=== PATIENT | female | born 1980 | race African-American/Black ===

== ENCOUNTER 2018-02-24 14:31 | Inpatient (IN) ==
[2018-02-24] MEDS ORDERED: SODIUM CHLORIDE 0.9% 1,000 ML IV STA (15:04)
[2018-02-24] MEDS ORDERED: ONDANSETRON 4 MG/2 ML VIAL IV STA (15:05)
[2018-02-24 15:53] LABS: Basophils % 0.1 % (0.0-0.8); Eosinophils # 0.1 10*3/uL (0.0-0.87); Eosinophils % 0.8 % (0.00-10.9); Hematocrit 35.7 VOL% (35.7-47.0); Immature Granulocytes % 0.4 %; Immature Granulocytes Absolute 0.03 #; Lymphocytes # 2.1 10*3/uL (1.4-4.0); Lymphocytes % 25.2 % (21.3-54.2); Mean Corpuscular HGB Conc 33.6 GM/DL (32-36); Mean Corpuscular Hemoglobin 34 PG (27-34); Mean Corpuscular Volume 100.3 FL (87-102); Mean Platelet Volume 9.3 FL (9.6-12.0); Monocytes # 0.6 10*3/uL (0.11-0.8); Monocytes % 7.7 % (1.7-12.7); Neutrophils # 5.4 10*3/uL (1.4-7.4); Neutrophils % 65.8 % (38.7-73.9); Platelet Count 281 T/CUMM (130-400); Red Blood Count 3.56 MC/CUMM (3.8-5.5); Red Cell Distribution Width 14.7 % (9.3-17.3); White Blood Count 8.3 T/CUMM (4-12)
[2018-02-24 16:09] LABS: Albumin 3.9 G/DL (3.4-5.0); Bilirubin,Total 0.8 MG/DL (0.2-1.0); Osmolality,Calculated 273.7 MOS/KG (273-304); Total Protein 7.6 G/DL (6.4-8.3)
[2018-02-24 16:35] LABS: Apearance,Urine CLOUDY (Clear); Bacteria,Urine Occasional /HPF (Few); Bilirubin,Urine Negative (Negative); Blood, Urine Negative (Negative); Glucose,Urine (UA) Negative (Negative); Ketones,Urine 80 mg/dL (Negative); Mucus,Urine Occasional /LPF (Occasional); Nitrite,Urine Positive (Negative); Protein,Urine Negative; RBC,Urine 4 /HPF (0-4); Squamous Epithelial Cell,Urine Occasional /HPF (0-10); Urine Color Yellow (Yellow); Urine Specific Gravity 1.014 (1.001-1.035); Urine Urobilinogen < 2.0 EU/DL (0.2-1.0); WBC,Urine 17 /HPF (0-6)
[2018-02-24] MEDS ORDERED: PROMETHAZINE 25 MG/1 ML VIAL IM STA (16:39)
[2018-02-24] MEDS ORDERED: MORPHINE 4 MG/1 ML VIAL IV STA ×2 (16:40→18:42)
[2018-02-24] MEDS ORDERED: MORPHINE 4 MG/1 ML VIAL IV PRN (17:07)
[2018-02-24] MEDS ORDERED: ONDANSETRON 4 MG/2 ML VIAL IV PRN (17:07)
[2018-02-24 17:10] LABS: Barbiturates Screen,Urine Negative (Negative); Benzodiazepines Screen,Urine Negative (Negative); Cannabinoid Screen,Urine Positive (Negative); Opiate Screen,Urine Negative (Negative); Phencyclidine Screen,Urine Negative (Negative)
[2018-02-24] MEDS ORDERED: SODIUM CHLORIDE 0.9% 1,000 ML IV ONE (17:10)
[2018-02-24 17:12] LABS: Risk Ratio 1.55; VLDL CHOLESTEROL 16.4 MG/DL
[2018-02-24] MEDS ORDERED: MAGNESIUM SULF RIDER 2 GM in PREMIX 1 EACH IV PRN (17:19)
[2018-02-24] MEDS ORDERED: MAGNESIUM SULF RIDER 4 GM in PREMIX 1 EACH IV PRN (17:19)
[2018-02-24] MEDS ORDERED: MULTIVITAMIN IV SCH (17:30)
[2018-02-24] MEDS ORDERED: SODIUM CHLORIDE IV SCH (17:30)
[2018-02-24] MEDS ORDERED: hydrALAZINE 20 MG/1 ML VIAL IV PRN (17:37)
[2018-02-24] MEDS ORDERED: hydrALAZINE 20 MG/1 ML VIAL ONE (17:57)
[2018-02-24] MEDS: ENOXAPARIN 40 MG/0.4 ML SYRINGE SUBCUT SCH (19:43)
[2018-02-24] MEDS: LEVOFLOXACIN INJ 500 MG in PREMIX 1 EACH IV SCH (19:44)
[2018-02-24] MEDS: SODIUM CHLOR 0.9% KCL 20 MEQ 20 MEQ/1,000 ML BAG IV SCH (19:44)
[2018-02-24] MEDS: LORazepam 2 MG/1 ML VIAL IV SCH ×2 (19:45→23:43)
[2018-02-24] MEDS ORDERED: cloNIDine 0.2 MG/24 HR PATCH TRANSDERM SCH (21:00)
[2018-02-24] MEDS: MORPHINE 4 MG/1 ML VIAL IV PRN (21:32)
[2018-02-25 05:22] LABS: Basophils % 0.1 % (0.0-0.8); Eosinophils % 0.1 % (0.00-10.9); Hematocrit 34.3 VOL% (35.7-47.0); Immature Granulocytes % 0.3 %; Immature Granulocytes Absolute 0.02 #; Lymphocytes # 1.7 10*3/uL (1.4-4.0); Lymphocytes % 23.8 % (21.3-54.2); Mean Corpuscular HGB Conc 32.1 GM/DL (32-36); Mean Corpuscular Hemoglobin 33 PG (27-34); Mean Corpuscular Volume 102.7 FL (87-102); Mean Platelet Volume 9.2 FL (9.6-12.0); Monocytes # 0.5 10*3/uL (0.11-0.8); Monocytes % 6.9 % (1.7-12.7); Neutrophils # 4.9 10*3/uL (1.4-7.4); Neutrophils % 68.8 % (38.7-73.9); Platelet Count 255 T/CUMM (130-400); Red Blood Count 3.34 MC/CUMM (3.8-5.5); Red Cell Distribution Width 15.2 % (9.3-17.3); White Blood Count 7.1 T/CUMM (4-12)
[2018-02-25] MEDS: SODIUM CHLOR 0.9% KCL 20 MEQ 20 MEQ/1,000 ML BAG IV SCH ×2 (05:31→16:39)
[2018-02-25 05:45] LABS: Albumin 3.4 G/DL (3.4-5.0); Bilirubin,Total 0.5 MG/DL (0.2-1.0); Calcium 7.6 MG/DL (8.5-10.1); Osmolality,Calculated 267.8 MOS/KG (273-304); Potassium 3.9 MMOL/L (3.5-5.1); Total Protein 6.6 G/DL (6.4-8.3)
[2018-02-25] MEDS: LORazepam 2 MG/1 ML VIAL IV SCH ×3 (05:52→21:20)
[2018-02-25] MEDS ORDERED: THIAMINE 200 MG/2 ML VIAL IV SCH (09:00)
[2018-02-25] MEDS ORDERED: PANTOPRAZOLE 40 MG VIAL IV SCH (09:00)
[2018-02-25] MEDS: ENOXAPARIN 40 MG/0.4 ML SYRINGE SUBCUT SCH (16:39)
[2018-02-25] MEDS: MORPHINE 4 MG/1 ML VIAL IV PRN (18:50)
[2018-02-25] MEDS: LEVOFLOXACIN INJ 500 MG in PREMIX 1 EACH IV SCH (21:20)
[2018-02-26] MEDS: SODIUM CHLOR 0.9% KCL 20 MEQ 20 MEQ/1,000 ML BAG IV SCH (01:27)
[2018-02-26] MEDS: LORazepam 2 MG/1 ML VIAL IV SCH (02:31)
[2018-02-26 04:35] LABS: Basophils % 0.2 % (0.0-0.8); Eosinophils % 0.7 % (0.00-10.9); Hematocrit 32.7 VOL% (35.7-47.0); Hemoglobin 10.6 GM/DL (12.0-16.0); Immature Granulocytes % 0.3 %; Immature Granulocytes Absolute 0.02 #; Lymphocytes # 1.3 10*3/uL (1.4-4.0); Lymphocytes % 21.2 % (21.3-54.2); Mean Corpuscular HGB Conc 32.4 GM/DL (32-36); Mean Corpuscular Hemoglobin 34 PG (27-34); Mean Corpuscular Volume 103.5 FL (87-102); Mean Platelet Volume 9.5 FL (9.6-12.0); Monocytes # 0.4 10*3/uL (0.11-0.8); Monocytes % 6.6 % (1.7-12.7); Neutrophils # 4.2 10*3/uL (1.4-7.4); Platelet Count 222 T/CUMM (130-400); Red Blood Count 3.16 MC/CUMM (3.8-5.5); Red Cell Distribution Width 15.2 % (9.3-17.3); White Blood Count 5.9 T/CUMM (4-12)
[2018-02-26 05:09] LABS: Albumin 2.7 G/DL (3.4-5.0); Bilirubin,Total 0.8 MG/DL (0.2-1.0); Calcium 7.6 MG/DL (8.5-10.1); Potassium 4.2 MMOL/L (3.5-5.1); Total Protein 5.9 G/DL (6.4-8.3)
[2018-02-26 07:31] VITALS: BP 117/93
== END 2018-02-26 09:42 | disposition home or self-care (01) | DRG 439 ==
LOC: N.ED 14:31 → N.EDINP 17:07 → SUATTDRO 17:07 → N.EDINP 18:52 → N.2E 19:12
PROVIDERS: ADMIT Internal Medicine; ATTEND Family Medicine

== ENCOUNTER 2019-07-10 09:17 | Inpatient (IN) ==
[2019-07-10] MEDS ORDERED: SODIUM CHLORIDE 0.9% 1,000 ML IV STA ×2 (10:06→11:06)
[2019-07-10] MEDS ORDERED: MORPHINE 4 MG/1 ML VIAL IV STA ×2 (10:15→10:57)
[2019-07-10] MEDS ORDERED: ONDANSETRON 4 MG/2 ML VIAL IV STA (10:15)
[2019-07-10 10:19] LABS: Basophils % 0.2 % (0.0-0.8); Hematocrit 39.3 VOL% (35.7-47.0); Immature Granulocytes % 0.2 %; Immature Granulocytes Absolute 0.02 #; Lymphocytes # 1.7 10*3/uL (1.4-4.0); Lymphocytes % 19.6 % (21.3-54.2); Mean Corpuscular HGB Conc 30.5 GM/DL (32-36); Mean Corpuscular Volume 116.3 FL (87-102); Monocytes % 7.6 % (1.7-12.7); Neutrophils % 72.4 % (38.7-73.9); Platelet Count 376 T/CUMM (130-400); Red Blood Count 3.38 MC/CUMM (3.8-5.5); Red Cell Distribution Width 15.4 % (9.3-17.3); White Blood Count 8.7 T/CUMM (4-12)
[2019-07-10 10:38] LABS: Barbiturates Screen,Urine Negative (Negative); Benzodiazepines Screen,Urine Negative (Negative); Cannabinoid Screen,Urine Positive (Negative); Opiate Screen,Urine Negative (Negative); Phencyclidine Screen,Urine Negative (Negative)
[2019-07-10 10:39] LABS: Macrocytosis Slight; Platelet Estimate Normal; Polychromasia Slight
[2019-07-10 10:43] LABS: Albumin 4.7 G/DL (3.4-5.0); Calcium 9.9 MG/DL (8.5-10.1); Osmolality,Calculated 267.1 MOS/KG (273-304); Total Protein 9.3 G/DL (6.4-8.3)
[2019-07-10 10:43] LABS: Apearance,Urine Slightly Hazy (Clear); Bacteria,Urine Occasional /HPF (Few); Bilirubin,Urine Negative (Negative); Blood, Urine Large mg/dL (Negative); Glucose,Urine (UA) Negative (Negative); Ketones,Urine 80 mg/dL (Negative); Mucus,Urine Occasional /LPF (Occasional); Nitrite,Urine Negative (Negative); Protein,Urine 30 MG/DL; RBC,Urine 2 /HPF (0-4); Squamous Epithelial Cell,Urine Occasional /HPF (0-10); Urine Color Yellow (Yellow); Urine Specific Gravity 1.014 (1.001-1.035); Urine Urobilinogen < 2.0 EU/DL (0.2-1.0); WBC,Urine <1 /HPF (0-6)
[2019-07-10] MEDS ORDERED: LACTATED RINGERS 1,000 ML IV ONE (11:22)
[2019-07-10] MEDS ORDERED: SODIUM BICARBONATE 50 MEQ/50 ML VIAL IV STA (11:32)
[2019-07-10] MEDS ORDERED: PROMETHAZINE 25 MG/1 ML VIAL IM PRN (11:35)
[2019-07-10 11:55] LABS: ABG Base Excess -22.8 MMOL/L (-2.5-2.5); ABG HCO3 8.1 MMOL/L (20-26); ABG Oxygen Saturation 88.8 % (95-100); ABG PO2 81.4 MM HG (80-95); ABG TCO2 5.8 MMOL/L (23-27)
[2019-07-10 11:57] LABS: ABG PCO2 19.9 MM HG (35-48); ABG PH 7.089 (7.35-7.45)
[2019-07-10] MEDS ORDERED: THIAMINE INJ 100 MG, FOLIC ACID INJ 1 MG, MAGNESIUM SULF INJ 2 GM, MULTIVITAMIN INJ 10 ... IV ONE (12:30)
[2019-07-10] MEDS ORDERED: DEXTROSE 10% 250 ML BAG IV PRN (12:41)
[2019-07-10] MEDS ORDERED: hydrALAZINE 20 MG/1 ML VIAL IV PRN (12:41)
[2019-07-10] MEDS ORDERED: GLUCAGON 1 MG VIAL IM PRN (12:41)
[2019-07-10] MEDS ORDERED: NICOTINE 21 MG/24 HR PATCH TRANSDERM PRN (12:50)
[2019-07-10] MEDS ORDERED: POTASSIUM CHLORIDE 20 MEQ TABLET PO PRN (12:58)
[2019-07-10] MEDS: POTASSIUM CHLORIDE RIDER 10 MEQ in PREMIX 1 EACH IV PRN ×4 (13:14→20:15)
[2019-07-10] MEDS: ENOXAPARIN 40 MG/0.4 ML SYRINGE SUBCUT SCH (13:14)
[2019-07-10] MEDS: PANTOPRAZOLE 40 MG VIAL IV SCH (13:14)
[2019-07-10] MEDS: ONDANSETRON 4 MG/2 ML VIAL IV PRN ×2 (13:15→21:30)
[2019-07-10] MEDS: MORPHINE 4 MG/1 ML VIAL IV PRN ×3 (13:15→21:57)
[2019-07-10] MEDS ORDERED: SODIUM BICARBONATE 50 MEQ/50 ML VIAL IV ONE (14:05)
[2019-07-10] MEDS: SODIUM BICARB INJ 150 MEQ in DEXTROSE 5% 850 ML IV SCH (14:51)
[2019-07-10 18:42] LABS: Calcium 7.8 MG/DL (8.5-10.1); Osmolality,Calculated 272.7 MOS/KG (273-304)
[2019-07-10] MEDS: ZALEPLON 5 MG CAPSULE PO PRN (21:59)
[2019-07-11] MEDS: SODIUM BICARB INJ 150 MEQ in DEXTROSE 5% 850 ML IV SCH ×2 (00:55→09:00)
[2019-07-11 06:31] LABS: Eosinophils % 0.2 % (0.00-10.9); Hemoglobin 10.9 GM/DL (12.0-16.0); Immature Granulocytes % 0.2 %; Immature Granulocytes Absolute 0.01 #; Lymphocytes % 19.3 % (21.3-54.2); Mean Corpuscular Volume 108.9 FL (87-102); Mean Platelet Volume 8.7 FL (9.6-12.0); Monocytes % 5.8 % (1.7-12.7); Neutrophils % 74.5 % (38.7-73.9); Platelet Count 273 T/CUMM (130-400); Red Blood Count 3.03 MC/CUMM (3.8-5.5); Red Cell Distribution Width 14.2 % (9.3-17.3); White Blood Count 5.4 T/CUMM (4-12)
[2019-07-11 06:59] LABS: Albumin 3.3 G/DL (3.4-5.0); Bilirubin,Total 0.5 MG/DL (0.2-1.0); Calcium 8.2 MG/DL (8.5-10.1); Osmolality,Calculated 267.1 MOS/KG (273-304); Risk Ratio 2.17; Total Protein 6.7 G/DL (6.4-8.3)
[2019-07-11] MEDS ORDERED: MAGNESIUM SULF RIDER 2 GM in PREMIX 1 EACH IV PRN (07:33)
[2019-07-11] MEDS ORDERED: MAGNESIUM SULF RIDER 4 GM in PREMIX 1 EACH IV PRN (07:33)
[2019-07-11 07:59] LABS: Free T4 (Free Thyroxine) 1.07 NG/DL (0.76-1.46)
[2019-07-11] MEDS: PANTOPRAZOLE 40 MG VIAL IV SCH (08:59)
[2019-07-11] MEDS: MORPHINE 4 MG/1 ML VIAL IV PRN ×2 (09:00→12:24)
[2019-07-11] MEDS: POTASSIUM CHLORIDE RIDER 10 MEQ in PREMIX 1 EACH IV PRN ×4 (09:18→12:25)
[2019-07-11] MEDS: ENOXAPARIN 40 MG/0.4 ML SYRINGE SUBCUT SCH (13:33)
[2019-07-11] MEDS: SODIUM CHLORIDE 0.9% 1,000 ML IV SCH (16:38)
[2019-07-11] MEDS: ZALEPLON 5 MG CAPSULE PO PRN (20:36)
[2019-07-12] MEDS: SODIUM CHLORIDE 0.9% 1,000 ML IV SCH ×4 (00:38→16:10)
[2019-07-12 05:11] LABS: Basophils % 0.2 % (0.0-0.8); Eosinophils % 0.7 % (0.00-10.9); Hematocrit 32.9 VOL% (35.7-47.0); Immature Granulocytes % 0.2 %; Immature Granulocytes Absolute 0.01 #; Lymphocytes # 1.3 10*3/uL (1.4-4.0); Lymphocytes % 28.3 % (21.3-54.2); Mean Corpuscular HGB Conc 33.4 GM/DL (32-36); Mean Corpuscular Volume 106.1 FL (87-102); Mean Platelet Volume 9.4 FL (9.6-12.0); Monocytes % 5.9 % (1.7-12.7); Neutrophils % 64.7 % (38.7-73.9); Platelet Count 235 T/CUMM (130-400); Red Cell Distribution Width 14.2 % (9.3-17.3); White Blood Count 4.4 T/CUMM (4-12)
[2019-07-12 05:22] LABS: Calcium 8.2 MG/DL (8.5-10.1); Osmolality,Calculated 268.8 MOS/KG (273-304)
[2019-07-12 05:28] LABS: Albumin 2.9 G/DL (3.4-5.0); Bilirubin,Total 1.2 MG/DL (0.2-1.0); Calcium 8.2 MG/DL (8.5-10.1); Total Protein 5.8 G/DL (6.4-8.3)
[2019-07-12] MEDS: POTASSIUM CHLORIDE RIDER 10 MEQ in PREMIX 1 EACH IV PRN ×5 (05:33→11:15)
[2019-07-12 06:52] LABS: Eosinophils 2 % (0-10); Hypochromasia 1+; Lymphocytes 19 % (20-55); Platelet Estimate Adequate; Segmented Neutrophils 77 % (50-85); Total Cells Counted 100
[2019-07-12] MEDS: PANTOPRAZOLE 40 MG VIAL IV SCH (08:12)
[2019-07-12] MEDS: POTASSIUM CHLORIDE 20 MEQ TABLET PO SCH (09:15)
[2019-07-12] MEDS: MAGNESIUM CHLORIDE 64 MG TABLET PO SCH (09:15)
[2019-07-12] MEDS: ENOXAPARIN 40 MG/0.4 ML SYRINGE SUBCUT SCH (12:20)
[2019-07-12] MEDS: ZALEPLON 5 MG CAPSULE PO PRN (22:17)
[2019-07-13] MEDS: SODIUM CHLORIDE 0.9% 1,000 ML IV SCH ×2 (00:14→08:21)
[2019-07-13 06:26] LABS: Basophils % 0.2 % (0.0-0.8); Eosinophils # 0.1 10*3/uL (0.0-0.87); Eosinophils % 2.3 % (0.00-10.9); Immature Granulocytes % 0.2 %; Immature Granulocytes Absolute 0.01 #; Lymphocytes # 1.2 10*3/uL (1.4-4.0); Lymphocytes % 27.6 % (21.3-54.2); Mean Corpuscular HGB Conc 33.3 GM/DL (32-36); Mean Corpuscular Volume 106.4 FL (87-102); Mean Platelet Volume 9.7 FL (9.6-12.0); Monocytes % 6.7 % (1.7-12.7); Platelet Count 220 T/CUMM (130-400); Red Blood Count 2.82 MC/CUMM (3.8-5.5); Red Cell Distribution Width 14.1 % (9.3-17.3); White Blood Count 4.4 T/CUMM (4-12)
[2019-07-13 06:47] LABS: Calcium 7.9 MG/DL (8.5-10.1)
[2019-07-13 06:48] LABS: Albumin 2.2 G/DL (3.4-5.0); Bilirubin,Total 0.4 MG/DL (0.2-1.0); Total Protein 5.4 G/DL (6.4-8.3)
[2019-07-13 07:14] LABS: Anisocytosis Slight; Macrocytosis 1+; Platelet Estimate Normal
[2019-07-13] MEDS: POTASSIUM CHLORIDE 20 MEQ TABLET PO SCH (08:31)
[2019-07-13] MEDS: MAGNESIUM CHLORIDE 64 MG TABLET PO SCH (08:31)
[2019-07-13] MEDS: PANTOPRAZOLE 40 MG VIAL IV SCH (08:32)
[2019-07-13 09:33] VITALS: BP 114/94
== END 2019-07-13 10:44 | disposition home or self-care (01) | DRG 439 ==
LOC: N.ED 09:17 → SUATTDRO 11:29 → N.EDINP 11:29 → N.4E 12:52
PROVIDERS: ADMIT Family Medicine; ATTEND Emergency Medicine

== ENCOUNTER 2020-06-15 09:54 | Observation (INO) ==
[2020-06-15] MEDS ORDERED: LORazepam 2 MG/1 ML VIAL IV STA (11:00)
[2020-06-15] MEDS ORDERED: SODIUM CHLORIDE 0.9% 1,000 ML IV STA ×2 (11:00→15:25)
[2020-06-15 11:29] LABS: Bilirubin,Urine Negative (Negative); Blood, Urine Negative (Negative); Glucose,Urine (UA) Negative (Negative); Hyaline Casts,Urine 3 /LPF (0-3); Ketones,Urine 80 mg/dL (Negative); Mucus,Urine Many /LPF (Occasional); Nitrite,Urine Positive (Negative); Protein,Urine 100 MG/DL; RBC,Urine 4 /HPF (0-4); Squamous Epithelial Cell,Urine Few /HPF (0-10); Urine Appearance Slightly Hazy (Clear); Urine Color Amber (Yellow); Urine Specific Gravity 1.026 (1.001-1.035)
[2020-06-15 11:31] LABS: Basophils % 0.1 % (0.0-0.8); Eosinophils % 0.1 % (0.00-10.9); Hematocrit 39.7 VOL% (35.7-47.0); Hemoglobin 13.7 GM/DL (12.0-16.0); Immature Granulocytes % 0.1 %; Immature Granulocytes Absolute 0.01 #; Lymphocytes # 1.4 10*3/uL (1.4-4.0); Lymphocytes % 16.8 % (21.3-54.2); Mean Corpuscular HGB Conc 34.5 GM/DL (32-36); Mean Corpuscular Volume 98.5 FL (87-102); Mean Platelet Volume 8.8 FL (9.6-12.0); Monocytes % 4.9 % (1.7-12.7); Platelet Count 304 T/CUMM (130-400); Red Blood Count 4.03 MC/CUMM (3.8-5.5); Red Cell Distribution Width 13.1 % (9.3-17.3); White Blood Count 8.2 T/CUMM (4-12)
[2020-06-15] MEDS ORDERED: ONDANSETRON 4 MG/2 ML VIAL IV STA (11:47)
[2020-06-15] MEDS ORDERED: ONDANSETRON 4 MG/2 ML VIAL ONE (11:48)
[2020-06-15 11:51] LABS: Barbiturates Screen,Urine Negative (Negative); Benzodiazepines Screen,Urine Negative (Negative); Cannabinoid Screen,Urine Positive (Negative); Opiate Screen,Urine Negative (Negative); Phencyclidine Screen,Urine Negative (Negative)
[2020-06-15 11:52] LABS: Albumin 4.3 G/DL (3.4-5.0); Bilirubin,Total 0.4 MG/DL (0.2-1.0); Calcium 9.5 MG/DL (8.5-10.1); Osmolality,Calculated 273.5 MOS/KG (273-304); Potassium 2.8 MMOL/L (3.5-5.1); Total Protein 7.8 G/DL (6.4-8.2)
[2020-06-15] MEDS ORDERED: MORPHINE 4 MG/1 ML VIAL IV STA (11:55)
[2020-06-15] MEDS ORDERED: cefTRIAXone 1,000 MG in SODIUM CHLORIDE 0.9% 100 ML IV STA (11:59)
[2020-06-15] MEDS ORDERED: POTASSIUM CHLORIDE RIDER 20 MEQ in PREMIX 1 EACH IV STA (12:35)
[2020-06-15] MEDS ORDERED: ONDANSETRON 4 MG/2 ML VIAL IV PRN (14:19)
[2020-06-15] MEDS ORDERED: DEXTROSE 50% 25 GM/50 ML VIAL IV PRN (14:19)
[2020-06-15] MEDS ORDERED: GLUCAGON 1 MG VIAL IM PRN (14:19)
[2020-06-15] MEDS: MORPHINE 4 MG/1 ML VIAL IV PRN ×4 (14:45→23:58)
[2020-06-15] MEDS: ENOXAPARIN 40 MG/0.4 ML SYRINGE SUBCUT SCH (20:54)
[2020-06-16 06:48] LABS: Basophils % 0.1 % (0.0-0.8); Eosinophils % 0.3 % (0.00-10.9); Hemoglobin 11.9 GM/DL (12.0-16.0); Immature Granulocytes % 0.1 %; Immature Granulocytes Absolute 0.01 #; Lymphocytes # 1.5 10*3/uL (1.4-4.0); Mean Corpuscular Volume 99.2 FL (87-102); Mean Platelet Volume 9.1 FL (9.6-12.0); Monocytes % 6.7 % (1.7-12.7); Neutrophils % 71.8 % (38.7-73.9); Platelet Count 269 T/CUMM (130-400); Red Blood Count 3.53 MC/CUMM (3.8-5.5); Red Cell Distribution Width 13.4 % (9.3-17.3); White Blood Count 6.9 T/CUMM (4-12)
[2020-06-16 06:58] LABS: Calcium 8.5 MG/DL (8.5-10.1); Osmolality,Calculated 270.7 MOS/KG (273-304); Risk Ratio 2.61; VLDL CHOLESTEROL 18.2 MG/DL
[2020-06-16] MEDS ORDERED: POTASSIUM CHLORIDE RIDER 10 MEQ in PREMIX 1 EACH IV PRN (08:16)
[2020-06-16] MEDS: MORPHINE 4 MG/1 ML VIAL IV PRN ×3 (09:10→21:33)
[2020-06-16] MEDS: cefTRIAXone 1,000 MG in SODIUM CHLORIDE 0.9% 100 ML IV SCH (09:11)
[2020-06-16] MEDS: NICOTINE 21 MG/24 HR PATCH TRANSDERM SCH (09:12)
[2020-06-16] MEDS: SODIUM CHLOR 0.45% KCL 20 MEQ 20 MEQ/1,000 ML BAG IV SCH ×2 (09:23→23:03)
[2020-06-16] MEDS ORDERED: MAGNESIUM SULF RIDER 4 GM/100 ML PREMIX IV PRN (10:17)
[2020-06-16] MEDS ORDERED: MAGNESIUM SULF RIDER 2 GM/50 ML PREMIX IV PRN (10:17)
[2020-06-16] MEDS: POTASSIUM CHLORIDE RIDER 10 MEQ in PREMIX 1 EACH IV SCH ×4 (10:50→16:44)
[2020-06-16] MEDS: ENOXAPARIN 40 MG/0.4 ML SYRINGE SUBCUT SCH (21:34)
[2020-06-17] MEDS: MORPHINE 4 MG/1 ML VIAL IV PRN ×2 (01:22→11:00)
[2020-06-17] MEDS: SODIUM CHLOR 0.45% KCL 20 MEQ 20 MEQ/1,000 ML BAG IV SCH ×2 (01:58→08:31)
[2020-06-17 06:07] LABS: Basophils % 0.2 % (0.0-0.8); Eosinophils # 0.1 10*3/uL (0.0-0.87); Eosinophils % 1.8 % (0.00-10.9); Hematocrit 33.1 VOL% (35.7-47.0); Hemoglobin 11.4 GM/DL (12.0-16.0); Immature Granulocytes % 0.2 %; Immature Granulocytes Absolute 0.01 #; Lymphocytes # 1.8 10*3/uL (1.4-4.0); Lymphocytes % 36.1 % (21.3-54.2); Mean Corpuscular HGB Conc 34.4 GM/DL (32-36); Mean Corpuscular Volume 97.6 FL (87-102); Mean Platelet Volume 9.4 FL (9.6-12.0); Monocytes % 9.3 % (1.7-12.7); Neutrophils % 52.4 % (38.7-73.9); Platelet Count 265 T/CUMM (130-400); Red Blood Count 3.39 MC/CUMM (3.8-5.5); Red Cell Distribution Width 13.1 % (9.3-17.3)
[2020-06-17 06:33] LABS: Calcium 8.3 MG/DL (8.5-10.1); Osmolality,Calculated 267.8 MOS/KG (273-304); Potassium 3.1 MMOL/L (3.5-5.1)
[2020-06-17] MEDS: cefTRIAXone 1,000 MG in SODIUM CHLORIDE 0.9% 100 ML IV SCH (08:27)
[2020-06-17] MEDS: POTASSIUM CHLORIDE 20 MEQ TABLET PO PRN ×2 (08:33→10:45)
[2020-06-17] MEDS: NICOTINE 21 MG/24 HR PATCH TRANSDERM SCH (08:42)
[2020-06-17 12:10] VITALS: BP 135/97
== END 2020-06-17 16:17 | disposition home or self-care (01) ==
LOC: N.ED 09:54 → N.EDINP 09:54 → SUATTDRO 14:19 → N.EDINP 15:37 → N.4E 15:57
PROVIDERS: ADMIT Phlebology; ATTEND Internal Medicine

== ENCOUNTER 2021-02-20 13:56 | Inpatient (IN) ==
[2021-02-20] MEDS ORDERED: SODIUM CHLORIDE 0.9% 1,000 ML IV STA (15:33)
[2021-02-20] MEDS ORDERED: ONDANSETRON 4 MG/2 ML VIAL IV STA (15:57)
[2021-02-20] MEDS ORDERED: ONDANSETRON 4 MG/2 ML VIAL ONE (15:59)
[2021-02-20] MEDS ORDERED: MORPHINE 2 MG/1 ML SYRINGE IV STA ×2 (16:05→19:27)
[2021-02-20 16:10] LABS: Basophils % 0.2 % (0.0-0.8); Eosinophils # 0.1 10*3/uL (0.0-0.87); Eosinophils % 0.9 % (0.00-10.9); Hematocrit 39.9 VOL% (35.7-47.0); Hemoglobin 13.1 GM/DL (12.0-16.0); Immature Granulocytes % 0.2 %; Immature Granulocytes Absolute 0.02 #; Lymphocytes # 1.4 10*3/uL (1.4-4.0); Lymphocytes % 17.5 % (21.3-54.2); Mean Corpuscular HGB Conc 32.8 GM/DL (32-36); Mean Corpuscular Volume 98.3 FL (87-102); Mean Platelet Volume 10.5 FL (9.6-12.0); Monocytes % 4.3 % (1.7-12.7); Neutrophils % 76.9 % (38.7-73.9); Platelet Count 175 T/CUMM (130-400); Red Blood Count 4.06 MC/CUMM (3.8-5.5); Red Cell Distribution Width 13.5 % (9.3-17.3); White Blood Count 8.2 T/CUMM (4-12)
[2021-02-20 16:32] LABS: Albumin 4.6 G/DL (3.4-5.0); Bilirubin,Total 0.6 MG/DL (0.20-1.00); Calcium 9.6 MG/DL (8.5-10.1); Osmolality,Calculated 265.4 MOS/KG (273-304); Potassium 4.3 MMOL/L (3.5-5.1); Total Protein 9.4 G/DL (6.4-8.2)
[2021-02-20 16:33] LABS: Urine Color Yellow (Yellow)
[2021-02-20 16:34] LABS: Bilirubin,Urine Negative (Negative); Blood, Urine Moderate mg/dL (Negative); Glucose,Urine (UA) Negative (Negative); Ketones,Urine 80 mg/dL (Negative); Nitrite,Urine Negative (Negative); Protein,Urine 100 MG/DL; RBC,Urine 2 /HPF (0-4); Urine Appearance CLEAR (Clear); Urine Specific Gravity 1.035 (1.001-1.035); Urine Urobilinogen < 2.0 EU/DL (<2.0)
[2021-02-20 16:35] LABS: Mucus,Urine Occasional /LPF (Occasional); Squamous Epithelial Cell,Urine Few /HPF (0-10)
[2021-02-20 16:43] LABS: Hypochromia 1+; Microcytosis 1+; Stomatocytes Slight
[2021-02-20] MEDS ORDERED: MAGNESIUM SULF RIDER 4 GM/100 ML PREMIX IV PRN (18:09)
[2021-02-20] MEDS ORDERED: MAGNESIUM SULF RIDER 2 GM/50 ML PREMIX IV PRN (18:09)
[2021-02-20] MEDS ORDERED: ONDANSETRON 4 MG/2 ML VIAL IV PRN (18:09)
[2021-02-20] MEDS ORDERED: GLUCAGON 1 MG VIAL IM PRN (18:09)
[2021-02-20] MEDS ORDERED: DEXTROSE 50% 25 GM/50 ML SYRINGE IV PRN (18:09)
[2021-02-20] MEDS ORDERED: LORazepam 2 MG/1 ML VIAL IV PRN (18:27)
[2021-02-20 20:05] LABS: Barbiturates Screen,Urine Negative (Negative); Benzodiazepines Screen,Urine Negative (Negative); Cannabinoid Screen,Urine Positive (Negative); Opiate Screen,Urine Negative (Negative); Phencyclidine Screen,Urine Negative (Negative)
[2021-02-20] MEDS: SODIUM CHLORIDE 0.9% 1,000 ML IV SCH (20:46)
[2021-02-20] MEDS: ENOXAPARIN 40 MG/0.4 ML SYRINGE SUBCUT SCH (22:25)
[2021-02-20] MEDS: MORPHINE 2 MG/1 ML SYRINGE IV PRN (23:29)
[2021-02-21] MEDS: MORPHINE 2 MG/1 ML SYRINGE IV PRN ×5 (03:44→20:13)
[2021-02-21] MEDS: SODIUM CHLORIDE 0.9% 1,000 ML IV SCH ×3 (03:45→18:34)
[2021-02-21 04:28] LABS: Basophils % 0.2 % (0.0-0.8); Eosinophils % 0.5 % (0.00-10.9); Hematocrit 34.9 VOL% (35.7-47.0); Hemoglobin 11.6 GM/DL (12.0-16.0); Immature Granulocytes % 0.2 %; Immature Granulocytes Absolute 0.01 #; Lymphocytes # 1.8 10*3/uL (1.4-4.0); Lymphocytes % 28.2 % (21.3-54.2); Mean Corpuscular HGB Conc 33.2 GM/DL (32-36); Mean Corpuscular Volume 98.6 FL (87-102); Mean Platelet Volume 8.9 FL (9.6-12.0); Neutrophils % 62.9 % (38.7-73.9); Platelet Count 261 T/CUMM (130-400); Red Blood Count 3.54 MC/CUMM (3.8-5.5); Red Cell Distribution Width 13.6 % (9.3-17.3); White Blood Count 6.5 T/CUMM (4-12)
[2021-02-21 05:15] LABS: Albumin 3.1 G/DL (3.4-5.0); Bilirubin,Total 0.4 MG/DL (0.20-1.00); Calcium 8.3 MG/DL (8.5-10.1); Osmolality,Calculated 268.8 MOS/KG (273-304); Potassium 3.6 MMOL/L (3.5-5.1); Risk Ratio 2.45; Total Protein 7.1 G/DL (6.4-8.2); VLDL Cholesterol 45.2 MG/DL
[2021-02-21] MEDS: THIAMINE 200 MG/2 ML VIAL IV SCH (10:27)
[2021-02-21] MEDS: ENOXAPARIN 40 MG/0.4 ML SYRINGE SUBCUT SCH (20:13)
[2021-02-22] MEDS: MORPHINE 2 MG/1 ML SYRINGE IV PRN ×2 (01:40→07:20)
[2021-02-22] MEDS: SODIUM CHLORIDE 0.9% 1,000 ML IV SCH ×2 (03:15→19:55)
[2021-02-22 06:46] LABS: Albumin 2.6 G/DL (3.4-5.0); Bilirubin,Total 0.9 MG/DL (0.20-1.00); Calcium 8.2 MG/DL (8.5-10.1); Osmolality,Calculated 271.5 MOS/KG (273-304); Total Protein 6.2 G/DL (6.4-8.2)
[2021-02-22 07:29] VITALS: BP 128/72
[2021-02-22] MEDS ORDERED: POTASSIUM CHLORIDE 20 MEQ TABLET PO ONE (08:15)
[2021-02-22] MEDS: THIAMINE 200 MG/2 ML VIAL IV SCH (08:49)
== END 2021-02-22 14:00 | disposition home or self-care (01) | DRG 439 ==
LOC: N.ED 13:56 → N.EDINP 17:57 → SUATTDRO 17:57 → N.3E 02-21 08:27
PROVIDERS: ADMIT Internal Medicine; ATTEND Internal Medicine

== ENCOUNTER 2021-10-21 16:03 | Observation (INO) ==
[2021-10-21] MEDS ORDERED: PANTOPRAZOLE 40 MG VIAL IV ONE (20:16)
[2021-10-21] MEDS ORDERED: ONDANSETRON 4 MG/2 ML VIAL ONE (20:16)
[2021-10-21] MEDS ORDERED: METOCLOPRAMIDE 10 MG/2 ML VIAL ONE (20:17)
[2021-10-21 20:23] LABS: Basophils % 0.4 % (0.0-0.8); Hematocrit 32.3 VOL% (35.7-47.0); Hemoglobin 10.8 GM/DL (12.0-16.0); Immature Granulocytes % 0.4 %; Immature Granulocytes Absolute 0.02 #; Lymphocytes # 1.2 10*3/uL (1.4-4.0); Lymphocytes % 21.9 % (21.3-54.2); Mean Corpuscular HGB Conc 33.4 GM/DL (32-36); Mean Corpuscular Volume 100.6 FL (87-102); Mean Platelet Volume 9.1 FL (9.6-12.0); Monocytes # 0.3 10*3/uL (0.11-0.8); Monocytes % 4.6 % (1.7-12.7); Neutrophils % 72.7 % (38.7-73.9); Platelet Count 328 T/CUMM (130-400); Red Blood Count 3.21 MC/CUMM (3.8-5.5); Red Cell Distribution Width 16.3 % (9.3-17.3); White Blood Count 5.5 T/CUMM (4-12)
[2021-10-21 20:24] LABS: Glucose,Urine (UA) Negative (Negative); Ketones,Urine Trace mg/dL (Negative); Nitrite,Urine Negative (Negative); Protein,Urine 30 mg/dL (Negative); Urine Appearance Clear (Clear); Urine Color Yellow (Yellow); Urine Specific Gravity >= 1.030 (1.001-1.035); Urine pH 5.5 (4.5-8.0)
[2021-10-21 20:25] LABS: Bilirubin,Urine Negative (Negative); Blood, Urine Large mg/dL (Negative); Urine Urobilinogen 0.2 eU/dL (<2.0)
[2021-10-21] MEDS ORDERED: ONDANSETRON 4 MG/2 ML VIAL IV STA (20:25)
[2021-10-21] MEDS ORDERED: METOCLOPRAMIDE 10 MG/2 ML VIAL IV STA (20:25)
[2021-10-21] MEDS ORDERED: SODIUM CHLORIDE 0.9% 1,000 ML IV STA (20:25)
[2021-10-21] MEDS ORDERED: PANTOPRAZOLE 40 MG VIAL IV STA (20:25)
[2021-10-21 20:27] LABS: Mucus,Urine Moderate /LPF (Occasional); RBC,Urine 21 /HPF (0-4); Squamous Epithelial Cell,Urine Occasional /HPF (0-10)
[2021-10-21 20:35] LABS: Albumin 3.5 G/DL (3.4-5.0); Bilirubin,Total 0.9 MG/DL (0.20-1.00); Calcium 8.8 MG/DL (8.5-10.1); Osmolality,Calculated 281.3 MOS/KG (273-304); Potassium 3.8 MMOL/L (3.5-5.1); Total Protein 7.7 G/DL (6.4-8.2)
[2021-10-21] MEDS ORDERED: MORPHINE 2 MG/1 ML SYRINGE IV STA ×2 (21:23→23:29)
[2021-10-22] MEDS ORDERED: DEXTROSE 10% 250 ML BAG IV PRN (00:33)
[2021-10-22] MEDS ORDERED: GLUCAGON 1 MG VIAL IM PRN (00:33)
[2021-10-22] MEDS ORDERED: hydrALAZINE 20 MG/1 ML VIAL IV PRN (00:33)
[2021-10-22] MEDS ORDERED: NICOTINE 21 MG/24 HR PATCH TRANSDERM PRN (00:33)
[2021-10-22] MEDS: SODIUM CHLORIDE 0.9% 1,000 ML IV SCH ×3 (01:22→17:35)
[2021-10-22] MEDS: MORPHINE 2 MG/1 ML SYRINGE IV PRN ×3 (04:11→20:27)
[2021-10-22 05:57] LABS: Basophils % 0.2 % (0.0-0.8); Eosinophils % 0.1 % (0.00-10.9); Hematocrit 28.1 VOL% (35.7-47.0); Hemoglobin 9.4 GM/DL (12.0-16.0); Immature Granulocytes % 0.2 %; Immature Granulocytes Absolute 0.02 #; Lymphocytes # 3.2 10*3/uL (1.4-4.0); Lymphocytes % 39.1 % (21.3-54.2); Mean Corpuscular HGB Conc 33.5 GM/DL (32-36); Mean Corpuscular Volume 100.4 FL (87-102); Mean Platelet Volume 8.8 FL (9.6-12.0); Monocytes # 0.6 10*3/uL (0.11-0.8); Monocytes % 7.9 % (1.7-12.7); Neutrophils % 52.5 % (38.7-73.9); Platelet Count 276 T/CUMM (130-400); White Blood Count 8.1 T/CUMM (4-12)
[2021-10-22 06:26] LABS: Albumin 3.2 G/DL (3.4-5.0); Bilirubin,Direct 0.19 MG/DL (0.0-0.20); Bilirubin,Indirect 0.5 MG/DL (0.0-1.0); Bilirubin,Total 0.7 MG/DL (0.20-1.00); Total Protein 6.2 G/DL (6.4-8.2)
[2021-10-22 06:30] LABS: Bilirubin,Total 0.6 MG/DL (0.20-1.00); Calcium 8.1 MG/DL (8.5-10.1); Osmolality,Calculated 279.1 MOS/KG (273-304); Potassium 2.7 MMOL/L (3.5-5.1); Total Protein 6.5 G/DL (6.4-8.2)
[2021-10-22] MEDS: PANTOPRAZOLE 40 MG VIAL IV SCH (08:39)
[2021-10-22] MEDS: HEPARIN 5,000 UNIT/1 ML VIAL SUBCUT SCH ×2 (08:39→20:25)
[2021-10-22] MEDS: POTASSIUM CHLORIDE RIDER 10 MEQ/100 ML PREMIX IV SCH ×4 (08:40→12:11)
[2021-10-22] MEDS: ONDANSETRON 4 MG/2 ML VIAL IV PRN ×2 (08:43→20:25)
[2021-10-22] MEDS ORDERED: LORazepam 2 MG/1 ML VIAL IV PRN (11:59)
[2021-10-22] MEDS: THIAMINE 200 MG/2 ML VIAL IV SCH (12:23)
[2021-10-22] MEDS: FOLIC ACID INJ 1 MG in SYRINGE 1 EACH IV SCH (14:55)
[2021-10-22] MEDS ORDERED: THIAMINE 100 MG TABLET PO SCH (15:00)
[2021-10-22] MEDS ORDERED: FOLIC ACID 1 MG TABLET PO SCH (21:00)
[2021-10-23] MEDS: SODIUM CHLORIDE 0.9% 1,000 ML IV SCH ×2 (00:50→09:38)
[2021-10-23] MEDS: ONDANSETRON 4 MG/2 ML VIAL IV PRN ×2 (01:13→05:44)
[2021-10-23] MEDS: MORPHINE 2 MG/1 ML SYRINGE IV PRN ×2 (01:15→05:46)
[2021-10-23 05:00] LABS: Basophils % 0.2 % (0.0-0.8); Eosinophils # 0.1 10*3/uL (0.0-0.87); Eosinophils % 0.9 % (0.00-10.9); Hematocrit 28.5 VOL% (35.7-47.0); Hemoglobin 9.5 GM/DL (12.0-16.0); Immature Granulocytes % 0.2 %; Immature Granulocytes Absolute 0.01 #; Lymphocytes # 1.9 10*3/uL (1.4-4.0); Lymphocytes % 34.7 % (21.3-54.2); Mean Corpuscular HGB Conc 33.3 GM/DL (32-36); Mean Corpuscular Volume 100.7 FL (87-102); Mean Platelet Volume 8.6 FL (9.6-12.0); Monocytes # 0.3 10*3/uL (0.11-0.8); Monocytes % 5.9 % (1.7-12.7); Neutrophils % 58.1 % (38.7-73.9); Platelet Count 250 T/CUMM (130-400); Red Blood Count 2.83 MC/CUMM (3.8-5.5); Red Cell Distribution Width 16.2 % (9.3-17.3); White Blood Count 5.4 T/CUMM (4-12)
[2021-10-23 05:18] LABS: Albumin 2.9 G/DL (3.4-5.0); Bilirubin,Total 0.8 MG/DL (0.20-1.00); Calcium 8.2 MG/DL (8.5-10.1); Osmolality,Calculated 271.5 MOS/KG (273-304); Potassium 3.1 MMOL/L (3.5-5.1); Risk Ratio 2.64; Total Protein 6.4 G/DL (6.4-8.2); VLDL Cholesterol 23.8 MG/DL
[2021-10-23 08:53] VITALS: BP 129/93
[2021-10-23] MEDS: PANTOPRAZOLE 40 MG VIAL IV SCH (09:37)
[2021-10-23] MEDS: FOLIC ACID INJ 1 MG in SYRINGE 1 EACH IV SCH (09:37)
[2021-10-23] MEDS: HEPARIN 5,000 UNIT/1 ML VIAL SUBCUT SCH (09:38)
[2021-10-23] MEDS: THIAMINE 200 MG/2 ML VIAL IV SCH (09:39)
== END 2021-10-23 14:45 | disposition home or self-care (01) ==
LOC: N.ED 16:03 → N.5E 10-22 00:33 → INTOOBSV 10-22 00:33 → N.5E 10-22 03:24
PROVIDERS: ADMIT Internal Medicine; ATTEND Internal Medicine